=== PATIENT | male | born 1980 | race African-American/Black ===

== ENCOUNTER 2024-03-12 11:59 | Emergency (ER) | payer MEDICAID, SELFPAY ==
[2024-03-12 12:07] VITALS: BP 109/78; PULSE 65; RESP 18; TEMP 36.6; O2SAT 98; BMI 19.8
--- NOTE | 2024-03-12 12:18 | XR_ITS ---
Examination: CT brain head without contrast. 2-D sagittal coronal reconstructions Date and time of exam:March 12, 2024 1346 hours Comparison July 19, 2022 INDICATIONS: Altered mental status today CTDI: vol (mGy):51.3 DLP: (mGycm):1175 Technique: Multiple CT axial sections of the brain have been obtained, 5 mm slice thickness. Contrast has not been administered. 2-D sagittal, coronal reconstructions have been obtained Low dose protocols were performed. One or more of the following dose reduction techniques were used; automated exposure control, adjustment of the mA and/or KV according to patient size, use of iterative reconstruction technique. Findings: No significant ventricular enlargement. Intra-axial or extra-axial hemorrhage density is not seen. No mass effect or midline shift Basal cisterns are not remarkable. Fourth ventricle is midline. Cranial vault intact. Impression: Negative for acute hemorrhage, mass effect or midline shift Advise clinical correlation and follow-up accordingly
[2024-03-12 13:05] LABS: Lactate (Lactic Acid) 1.2 mMol/L (0.4-2.0)
[2024-03-12 13:17] VITALS: PULSE 68; RESP 18; O2SAT 98
[2024-03-12 13:18] LABS: Basophils % (Auto) 0 % (0-2.5); Eosinophils # (Auto) 0.2 Thou/mm3 (0.0-0.5); Eosinophils % (Auto) 3 % (0-10); Hematocrit 40.2 % (41.0-53.0); Hemoglobin 13.1 g/dL (13.5-16.0); Immature Granulocytes % (Auto) 0 % (0-0); Immature Granulocytes Auto 0.03 Thou/mm3 (0.00-0.00); Lymphocytes # (Auto) 2.2 Thou/mm3 (1.0-4.8); Lymphocytes % (Auto) 31 % (10-50); Mean Corpuscular HGB Conc 32.6 g/dl (31.0-37.0); Mean Corpuscular Volume 89 fL (80-100); Monocytes # (Auto) 0.7 Thou/mm3 (0.0-0.8); Monocytes % (Auto) 10 % (0-12); Neutrophils # (Auto) 3.8 Thou/mm3 (1.8-7.7); Neutrophils % (Auto) 55 % (37-80); Nucleated Red Blood Cell % 0 /100 WBC (0); Platelet Count 177 Thou/mm3 (140-440); RDW Standard Deviation 41.1 fL (35.1-43.9); Red Blood Count 4.52 Miln/mm3 (4.50-5.90)
--- NOTE | 2024-03-12 13:25 | EKG_ITS ---
[facility] Test Date: 2024-03-12 Pat Name: JENNYFER ARANGO Department: Room: - Gender: Male Php Mysql Developer: : 1980 Requested By: Isidro Michele Order Number: [id number] Reading MD: Isidro Michele Measurements Intervals [place] Rate: 69 P: 41 TN: 143 QRS: 1 QRSD: 105 T: 30 QT: 423 QTc: 453 Interpretive Statements SINUS RHYTHM Compared to ECG 12/13/2019 15:50:45 No significant changes /store/S0/[id number].pdf
[2024-03-12 13:43] LABS: Acetaminophen < 2.0 mcg/mL (10.0-20.0); Alanine Aminotransferase 18 U/L (10-49); Albumin, Serum 4.3 gm/dL (3.5-5.0); Albumin/Globulin Ratio 1.3 (1.2-2.2); Alcohol, Blood Medical < 3.0 mg/dL (0-10.0); Alkaline Phosphatase 90 U/L (46-116); Anion Gap 9 (7-16); Aspartate Amino Transferase 27 U/L (0-34); BUN/Creatinine Ratio 21 Ratio (12-20); Bilirubin,Total 0.3 mg/dL (0.3-1.2); Blood Urea Nitrogen 21 mg/dL (9-23); Calcium 10.1 mg/dL (8.3-10.6); Calcium (Corrected) 10.1 mg/dL (8.5-10.1); Chloride 105 mMol/L (98-107); Estimated Creatinine Clearance 96.7 mL/min (>60); Globulin 3.2 gm/dL (2.3-3.5); Glucose 74 mg/dL (74-106); Osmolality,Calculated 288 (275-295); Potassium 4.1 mMol/L (3.4-5.1); Procalcitonin 0.05 ng/ml (0.0-0.49); Sodium 144 mMol/L (136-145); Total Protein 7.5 gm/dL (5.7-8.2); eGFR > 60 See Note
[2024-03-12] MEDS: SODIUM CHLORIDE 0.9% 1000 ML 1,000 ML 999 ML IV (13:52)
--- NOTE | 2024-03-12 13:56 | EDNOTE_ITS ---
Altered Mental Status RME/HPI General Chief Complaint: General Adult/Misc Complain Stated Complaint: GENERAL WEAKNESS Time Seen by Provider: 03/12/24 12:16 Arrival date/time: 03/12/24 11:59 RME / HPI RME / HPI narrative: 43 year old male with history of intellectual disability, schizophrenia presents to the ED BIB[facility] from [facility] for evaluation of altered mental status today. Caregiver at bedside reports at baseline the patient is difficulty to understand but today is worse than normal. Additionally reported at baseline the patient more unsteady than normal. While in the ED patient is dysarthric and unable to provide any additional history. Caregivers deny any fevers or recent illness. Related Data Home Medications ?Medication ?Instructions ?Recorded ?Confirmed atorvastatin 10 mg tablet 10 mg PO QPM 03/29/18 05/02/20 benztropine 0.5 mg tablet 0.5 mg PO BID 03/29/18 05/02/20 clonazepam 2 mg tablet 2 mg PO HS 03/29/18 05/02/20 lacosamide 10 mg/mL oral solution 200 mg PO BID 03/29/18 05/02/20 lactulose 10 gram/15 mL oral 15 ml PO BID 03/29/18 05/02/20 solution risperidone 1 mg/mL oral solution 6 mg PO QDAY 03/29/18 05/02/20 bisacodyl 10 mg rectal suppository 10 mg NJ PRN PRN Constipation 12/07/18 05/02/20 bisacodyl 5 mg tablet,delayed 5 mg PO BID PRN Constipation 12/07/18 05/02/20 release calcium 600 mg (as 1 tab PO BID 12/07/18 05/02/20 carbonate)-vitamin D3 10 mcg (400 unit) tablet (Calcium 600 + D(3)) clotrimazole-betamethasone 1 1 applic topical BID 12/07/18 05/02/20 %-0.05 % topical cream diazepam 2.5 mg rectal kit 5 mg NJ PRN 12/07/18 05/02/20 ibuprofen 600 mg tablet 600 mg PO Q6H 12/07/18 05/02/20 levetiracetam 500 mg tablet 1,500 mg PO BID 12/07/18 05/02/20 magnesium hydroxide 400 mg/5 mL 30 ml PO QDAY PRN Constipation 12/07/18 05/02/20 oral suspension (Milk of Magnesia) multivitamin 1 tab PO QDAY 12/07/18 05/02/20 olanzapine 20 mg tablet 20 mg PO QDAY 12/07/18 05/02/20 cannabidiol 100 mg/mL oral solution 5 mg PO DAILY 12/13/19 05/02/20 divalproex 500 mg tablet,extended 1,500 mg PO QDAY 12/13/19 05/02/20 release 24 hr glycopyrrolate 1 mg tablet 0.5 mg PO TID 12/13/19 05/02/20 Previous Rx's ?Medication ?Instructions ?Recorded oxcarbazepine 150 mg tablet 1,200 mg (8 x 150 mg) PO QPM #30 03/31/18 tabs oxcarbazepine 150 mg tablet 600 mg (4 x 150 mg) PO QAM #30 tabs 03/31/18 Allergies Allergy/AdvReac Type Severity Reaction Status Date / Time No Known Allergies Allergy Verified 07/19/22 08:52 Review of Systems Review of Systems ROS Unobtainable: unobtainable due to medical condition Past Medical History Past Medical History NEUROLOGIC: Positive Neurological Disorders (PROFOUND MENTAL DELAY) and Seizures CARDIAC: Positive Cardiac Disorders (right BBB) and Hypercholesterolemia GASTROINTESTINAL: Positive Gastrointestinal Disorders and Gastroesophageal Reflux Disease MUSCULOSKELETAL: Positive Musculoskeletal Disorders (UNSTEADY GAIT- W/C) and Fractures (ORIF-LEFT FEMUR) ENDOCRINE: Positive Hypothyroidism PSYCHO/SOCIAL: Positive Psychiatric Problems, Schizophrenia, Bipolar Disorder, Depression, Anxiety, Behavior Problems and Eating Disorder (PICKY EATER-LIKES HOT CHEETOS) Family History FAMILY HISTORY: Negative Family Neurologic Problems Surgical History SURGICAL: Positive Joint Replacement Social History SMOKING STATUS: Never smoker SECOND HAND EXPOSURE: No ED Exam Narrative Physical exam: GENERAL APPEARANCE: Patient is awake, alert, tries to answer questions although is dysarthric, no obvious distress, nontoxic appearing HEENT: NC, AT. MMM. EOMI, clear conjunctiva, oropharynx clear. NECK: Supple without lymphadenopathy. No stiffness or restricted ROM. HEART: Normal rate and regular rhythm, normal S1/S1, no m/r/g LUNGS: CTAB, moving air well. No crackles or wheezes are heard. ABDOMEN: Soft, nontender, nondistended with good bowel sounds heard. BACK: No midline C/T/L spine pain or deformity, No CVAT, no obvious deformity. EXTREMITIES: Without cyanosis, clubbing or edema. MUSCULOSKELETAL: FROM of all major joints, no chest tenderness NEUROLOGICAL: Grossly nonfocal. Alert, awake, dysarthric, moving all 4 extremities. CN not formally tested but appear grossly intact. Skin: Warm and dry without any rash. Course Quality Measures none Orders Category Date Time Status EKG (ED ONLY) *Do not use* NOW Care 03/12/24 13:[address] head/brain wo con Stat Exams 03/12/24 12:18 Completed EKG (ED Only) Stat Exams 03/12/24 13:25 Draft Acetaminophen Stat Lab 03/12/24 12:37 Completed Alcohol, Blood Medical Stat Lab 03/12/24 12:37 Completed CBC Stat Lab 03/12/24 12:37 Completed CMP [Comprehensive Metabolic Panel] Stat Lab 03/12/24 12:37 Completed Drug Screen,Urine Stat Lab 03/12/24 16:50 Completed Lactate (Lactic Acid) Stat Lab 03/12/24 12:37 Completed Procalcitonin Stat Lab 03/12/24 12:37 Completed Urinalysis Stat Lab 03/12/24 16:50 Completed Sodium Chloride 0.9% 1000 ml [Ns] 1,000 ml Med 03/12/24 12:16 Discontinued IV 999 mls/hr Reevaluation(s) Reevaluation #1: Patient remains clinically stable throughout the emergency department visit. We reviewed all the results, analysis, and treatment plans with cartography/mapping technician and are a menable to discharge. Strict return precautions were outlined. Patient was discharged in stable condition. Time: 17:40 Vital Signs Vital signs: Vital Signs Temperature 97.9 F 03/12/24 12:07 Pulse Rate 65 03/12/24 12:07 Respiratory Rate 18 03/12/24 12:07 Blood Pressure 109/78 03/12/24 12:07 Pulse Oximetry (%) 98 03/12/24 12:07 Oxygen Delivery Method Room Air 03/12/24 12:07 Pulse ox is 98% on room air which is adequate. Altered Mental Status MDM Narrative MDM Narrative:: Divine Keita am scribing for and in the presence of Dr. Michele. Patient data External records reviewed:: [facility] previous records (I reviewed ED visit on 07/19/2022), EMS form and [facility] records (I reviewed txfer ppw from [facility] which includes pmhx and medication list ) Clinical information provided by:: cartography/mapping technician Social determinants that could affect healthcare access:: housing ([facility] resident ) Patient has the following chronic illnesses:: intellectual disability, schizophrenia How is presenting disease/condition affected by chronic disease/condition?: exacerbated by Evaluation data The following diagnostics were reviewed and interpreted by me:: lab results, radiology exam(s) and EKG tracing(s) (Sinus rhythm, rate 69, no STEMI. ) Lab and/or radiology exams considered but not ordered:: None Interpretation Summary: Ordering Physician: Isidro Michele MD Date of Service: 03/12/24 Procedure(s): CT head/brain wo con Accession Number(s): [id number] cc: Isidro Michele MD; César Suarez MD~ Examination: CT brain head without contrast. 2-D sagittal coronal reconstructions Date and time of exam:March 12, 2024 1346 hours Comparison July 19, 2022 INDICATIONS: Altered mental status today CTDI: vol (mGy):51.3 DLP: (mGycm):1175 Technique: Multiple CT axial sections of the brain have been obtained, 5 mm slice thickness. Contrast has not been administered. 2-D sagittal, coronal reconstructions have been obtained Low dose protocols were performed. One or more of the following dose reduction techniques were used; automated exposure control, adjustment of the mA and/or KV according to patient size, use of iterative reconstruction technique. Findings: No significant ventricular enlargement. Intra-axial or extra-axial hemorrhage density is not seen. No mass effect or midline shift Basal cisterns are not remarkable. Fourth ventricle is midline. Cranial vault intact. Impression: Negative for acute hemorrhage, mass effect or midline shift Advise clinical correlation and follow-up accordingly Dictated By: César Suarez MD Signed By: <Electronically signed by César Suarez MD in OV> 03/12/24 1416 Medications / Prescriptions Medications or Prescriptions considered but not ordered:: None Medication administrations:: Medication Administration History Discontinued Medications Sodium Chloride (Ns) 1,000 mls @ 999 mls/hr IV .Q1H1M ONE Stop: 03/12/24 13:16 Last Infusion: 03/12/24 15:38 Dose: Infused Documented By: Admin: 03/12/24 13:52 Dose: 999 mls/hr Documented By: ELOISE See above Consultations Consultation(s) initiated? (list below): No Diagnosis Differential diagnosis altered mental status: altered mental status, hypoglycemia, hyponatremia, subarachnoid hemorrhage and sepsis Most likely diagnosis given after review of the tests above:: Schizophrenia Admission Indicated Admission indicated?: not indicated Admission Request Was there a request for admission?: No Disposition Plan Disposition Plan: Discharge Discharge Attestation Discharge Attestation: The patient and all family members were given an opportunity to ask questions and understood the discharge instructions. Discharge instructions specifically effects, indications for sooner follow up or return to the emergency department, and the expected course of current diagnosis. Patient condition: Stable Discharge Plan Plan Patient Disposition: HOME (Self Care) Prescriptions/Referrals Prescriptions/Med Rec: No Action benztropine 0.5 mg Tablet 0.5 mg PO BID atorvastatin 10 mg Tablet 10 mg PO QPM risperidone 1 mg/mL Solution 6 mg PO QDAY clonazepam 2 mg Tablet 2 mg PO HS lacosamide 10 mg/mL Solution 200 mg PO BID lactulose 10 gram/15 mL Solution 15 ml PO BID oxcarbazepine 150 mg Tablet 1,200 mg PO QPM Qty: 30 0RF oxcarbazepine 150 mg Tablet 600 mg PO QAM Qty: 30 0RF multivitamin Tablet 1 tab PO QDAY levetiracetam 500 mg Tablet 1,500 mg PO BID magnesium hydroxide [Milk of Magnesia] 400 mg/5 mL Suspension 30 ml PO QDAY PRN (Reason: Constipation) bisacodyl 10 mg Suppository 10 mg NJ PRN PRN (Reason: Constipation) clotrimazole-betamethasone 1-0.05 % Cream 1 applic TOPICAL BID bisacodyl 5 mg Tablet,Delayed Release (Dr/Ec) 5 mg PO BID PRN (Reason: Constipation) diazepam 2.5 mg Kit 5 mg NJ PRN ibuprofen 600 mg Tablet 600 mg PO Q6H olanzapine 20 mg Tablet 20 mg PO QDAY calcium carbonate-vitamin D3 [Calcium 600 + D(3)] 600 mg(1,500mg) -400 unit Tablet 1 tab PO BID glycopyrrolate 1 mg Tablet 0.5 mg PO TID divalproex 500 mg Tablet Extended Release 24 Hr 1,500 mg PO QDAY cannabidiol 100 mg/mL Solution 5 mg PO DAILY Referrals: Gavin Pina MD [Primary Care Provider] - In 1 week Problem List Clinical Impression: Schizophrenia Patient/Caregiver Discharge Instructions Education Materials: ED Schizophrenia, General Additional Instructions: Follow-up with your primary doctor in 2-3 days for recheck. You can return to your nearest emergency department if symptoms worsen or for any new or concerning issues. Print Language: Spanish Stand Alone Forms: [facility] Award Info., Patient Portal Info Letter
[2024-03-12 16:28] VITALS: BP 117/72; PULSE 65; RESP 16; TEMP 36.3; O2SAT 99
[2024-03-12 17:13] LABS: Collection Type, Urine Clean Catch
[2024-03-12 17:20] LABS: Bilirubin,Urine Negative (Negative); Blood,Urine Negative (Negative); Clarity,Urine Turbid (Clear/Hazy); Color,Urine Yellow (Lt Yel-Yel); Glucose, Urine Negative (Negative); Ketones,Urine 2+ (Negative); Leukocyte Esterase,Urine Positive (Negative); Nitrite,Urine Negative (Negative); PH,Urine 7.5 (5.0-7.0); Protein,Urine Trace (Neg - Trace); RBC,Urine 1 /hpf (0-3); Specific Gravity,Urine 1.031 (1.001-1.035); Squamous Epithelial Cell,Urine 2 /hpf (0-5); Urobilinogen,Urine Negative mg/dL (0.0-1.0); WBC,Urine 2 /hpf (0-5)
[2024-03-12 17:27] LABS: Amphetamine/Methamp Scrn,U Negative (Negative); Barbiturate Screen,Urine Negative (Negative); Benzodiazepines Screen,Urine Negative (Negative); Benzoylecgonine Screen, Ur Negative (Negative); Fentanyl Screen,Urine Negative (Negative); Opiate Screen,Urine Negative (Negative); THC Screen,Urine Positive (Negative)
[2024-03-12 17:42] VITALS: PULSE 109; RESP 20; O2SAT 100
--- NOTE | 2024-03-12 17:59 | PC.NURSE ---
Report called and given to Kelly at [facility] all questions answered she will pickle cutter pt
== END 2024-03-12 18:44 | disposition home or self-care (01) ==
PROVIDERS: Emergency Provider Emergency Medicine; PCP Family Medicine
DX: F20.9 Schizophrenia, unspecified (principal); F79 Unspecified intellectual disabilities
CPT/HCPCS: 36415; 70450; 80053; 80307; 80320; 80329; 81001; 83605; 84145; 85025; 93005; 96360; 96361; 99284; J7030; G0480